=== PATIENT | female | born 1950 | race Caucasian/White ===

== ENCOUNTER 2023-06-19 18:55 | Inpatient (IN) | payer MEDICARE ==
[2023-06-19 19:20] VITALS: BMI 29.4
[2023-06-19] MEDS ORDERED: Acetaminophen 325 MG TAB PO PRN (21:09)
[2023-06-19] MEDS ORDERED: Bisacodyl 5 MG TAB PO PRN (21:09)
[2023-06-19] MEDS ORDERED: Bisacodyl 10 MG SUPP PR PRN (21:09)
[2023-06-19] MEDS: Acetaminophen 325 MG TAB PO SCH (23:01)
[2023-06-20 06:06] LABS: ALT (SGPT) 12 U/L (8-55); AST (SGOT) 10 U/L (5-34); Albumin 2.6 g/dL (3.4-4.8); Alkaline Phosphatase 83 U/L (40-110); Anion Gap 11 mmol/L (10-20); BUN (Urea Nitrogen) 23 mg/dL (9.8-20.1); Bilirubin, Total 0.7 mg/dL (0.2-1.2); Calc. Creatinine Clearance 67 mL/min (70-130); Calcium 8.5 mg/dL (7.8-10.44); Carbon Dioxide 24 mmol/L (23-31); Chloride 111 mmol/L (98-107); Estimated GFR 65; Globulin 2.2 g/dL (2.4-3.5); Glucose 114 mg/dL (83-110); Potassium 4.3 mmol/L (3.5-5.1); Protein, Total 4.8 g/dL (5.8-8.1); Sodium 142 mmol/L (136-145)
[2023-06-20 06:15] LABS: #Eosinphils 0.3 thou/uL (0.0-0.7); #Lymphocytes 1.7 thou/uL (1.20-3.40); #Monocytes 0.9 thou/uL (0.11-0.59); #Neutrophils 4.4 thou/uL (1.40-6.50); %Basophils 0.7 % (0.0-1.0); %Eosinophils 3.5 % (0.0-10.0); %Lymphocytes 22.9 % (21.0-51.0); %Monocytes 12.4 % (0.0-10.0); %Neutrophils 60.5 % (42.0-75.0); Hemoglobin 8.5 g/dL (12.0-16.0); Mean Corpuscular HGB CONC 32.9 g/dL (32.0-36.0); Mean Corpuscular Hemoglobin 27.8 pg (27.0-31.0); Mean Corpuscular Volume 84.7 fl (78.0-98.0); Mean Platelet Volume 6.3 fL (7.4-10.4); Platelet Count 200 10x3/uL (130-400); RBC Distribution Width 14.3 % (11.5-14.5); Red Blood Cell (RBC) Count 3.07 mill/uL (4.20-5.40); White Blood Cell (WBC) Count 7.3 10x3/uL (4.8-10.8)
[2023-06-20] MEDS: Sacubitril 49 MG/Valsartan 51 MG TABLET PO SCH (08:39)
[2023-06-20] MEDS: Carvedilol 6.25 MG TAB PO SCH (08:40)
[2023-06-20] MEDS: Ferrous Sulfate 325 MG TAB PO SCH (08:41)
[2023-06-20] MEDS: Ascorbic Acid 500 mg Chewable Tablet PO SCH (08:41)
[2023-06-20] MEDS: Topiramate 25 MG TAB PO SCH (08:41)
[2023-06-20] MEDS: Aspirin 81 mg Enteric Coated Tablet PO SCH (08:42)
[2023-06-20] MEDS: Gabapentin 100 MG CAP PO SCH (08:42)
[2023-06-20] MEDS: Spironolactone 25 MG TAB PO SCH (08:43)
[2023-06-20] MEDS: HYDROcodone/Acetaminophen 10/325 mg Tablet PO PRN ×2 (08:50→13:55)
[2023-06-20] MEDS ORDERED: Gabapentin 100 MG CAP PO SCH (09:00)
[2023-06-20] MEDS ORDERED: PARoxetine 20 MG TAB PO SCH ×2 (21:00)
[2023-06-20] MEDS: Empagliflozin 10 MG TAB PO SCH (21:28)
[2023-06-20] MEDS: Sacubitril 24MG/Valsartan 26 MG TAB PO SCH (21:28)
[2023-06-20] MEDS: Atorvastatin Calcium 40 MG TAB PO SCH (21:29)
[2023-06-20] MEDS: PARoxetine 20 MG TAB PO SCH (21:29)
[2023-06-20] MEDS: Senokot S 8.6-50 MG TAB PO PRN (21:38)
[2023-06-21] MEDS: Calcium Carbonate 500 MG ChewTAB PO PRN (11:13)
[2023-06-21] MEDS: tiZANidine HCl 4 MG TAB PO PRN (20:47)
[2023-06-21] MEDS: Famotidine 20 MG TAB PO SCH (20:48)
[2023-06-24] MEDS: Acetaminophen 325 MG TAB PO PRN (05:24)
[2023-06-24 13:19] LABS: #Basophils 0.1 thou/uL (0.0-0.2); #Eosinphils 0.2 thou/uL (0.0-0.7); #Lymphocytes 1.3 thou/uL (1.20-3.40); #Monocytes 0.5 thou/uL (0.11-0.59); #Neutrophils 6.2 thou/uL (1.40-6.50); %Basophils 0.7 % (0.0-1.0); %Eosinophils 2.7 % (0.0-10.0); %Lymphocytes 15.4 % (21.0-51.0); %Neutrophils 75.2 % (42.0-75.0); Hematocrit 30.4 % (36.0-47.0); Hemoglobin 9.7 g/dL (12.0-16.0); Mean Corpuscular HGB CONC 31.8 g/dL (32.0-36.0); Mean Corpuscular Hemoglobin 27.8 pg (27.0-31.0); Mean Corpuscular Volume 87.6 fl (78.0-98.0); Mean Platelet Volume 6.5 fL (7.4-10.4); Platelet Count 257 10x3/uL (130-400); Red Blood Cell (RBC) Count 3.47 mill/uL (4.20-5.40); White Blood Cell (WBC) Count 8.3 10x3/uL (4.8-10.8)
[2023-07-05 05:57] VITALS: TEMP 97
[2023-07-05 09:26] VITALS: BP 112/68
== END 2023-07-05 11:55 | disposition home or self-care (01) | DRG 560 ==
LOC: BURMED 19:09 → UNDOADMIN 19:09
PROVIDERS: ADMIT Family Medicine; ATTEND Family Medicine
DX: S72.002D Fracture of unspecified part of neck of left femur, subsequent encounter for closed fracture with routine healing (principal); D62 Acute posthemorrhagic anemia; I42.9 Cardiomyopathy, unspecified; R53.1 Weakness; N32.81 Overactive bladder; M81.0 Age-related osteoporosis without current pathological fracture; I11.0 Hypertensive heart disease with heart failure; I50.9 Heart failure, unspecified; E78.5 Hyperlipidemia, unspecified; Z98.890 Other specified postprocedural states; Z90.710 Acquired absence of both cervix and uterus; Z95.810 Presence of automatic (implantable) cardiac defibrillator; Z88.0 Allergy status to penicillin; Z88.8 Allergy status to other drugs, medicaments and biological substances; Z79.82 Long term (current) use of aspirin; Z79.899 Other long term (current) drug therapy; Z85.3 Personal history of malignant neoplasm of breast
CPT/HCPCS: 36415; 80053; 85025

== ENCOUNTER 2023-12-02 09:08 | Emergency (ER) | payer MEDICARE ==
[2023-12-02] MEDS ORDERED: Ketorolac Tromethamine 30 MG (1 mL) VIAL ONE (10:00)
[2023-12-02] MEDS ORDERED: HYDROcodone/Acetaminophen 10/325 mg Tablet ONE (10:00)
== END 2023-12-02 10:15 | disposition home or self-care (01) ==
LOC: BURERS 09:08
DX: S42.412A Displaced simple supracondylar fracture without intercondylar fracture of left humerus, initial encounter for closed fracture (principal); I11.0 Hypertensive heart disease with heart failure; I50.9 Heart failure, unspecified; W20.8XXA Other cause of strike by thrown, projected or falling object, initial encounter
CPT/HCPCS: 73070; 96372; 99283; J1885